=== PATIENT | male | born 1940 | race Caucasian/White ===

== ENCOUNTER 2016-12-05 12:09 | Day surgery (SDC) | payer OTHER ==
[~2016-12-05] VITALS: Ht 177.8 cm; Wt 94.5 kg
[~2016-12-05 12:09] MED LIST: FISH OIL 1,0001 EAC7 PO; LISINOPRIL2.5 MG PO; METFORMIN HCL500 MG PO; MOBIC15 MG PO; MULTIPLE VITAM1 EACH PO; ZOCOR40 MG PO
[2016-12-05 12:58] VITALS: BP 185/97
[2016-12-05 15:04] LABS: POINT-OF-CARE METER ID UU14174212
[2016-12-05] MEDS ORDERED: NORCO 5/3251 TABLET PO (19:30)
[2016-12-05 20:31] LABS: POINT-OF-CARE METER ID UU13113675
[2016-12-05 20:40] VITALS: BP 177/73
[2016-12-05 21:54] VITALS: BP 173/79
[2016-12-05 22:17] VITALS: BP 169/78
== END 2016-12-05 22:25 | disposition home or self-care (01) ==
LOC: SDC 12:09
PROVIDERS: Surgery
PROC: 0YU50JZ Supplement Right Inguinal Region with Synthetic Substitute, Open Approach (ICD-10-PCS; principal; 2016-12-05)
DX: K40.90 Unilateral inguinal hernia, without obstruction or gangrene, not specified as recurrent (principal); I10 Essential (primary) hypertension; E11.9 Type 2 diabetes mellitus without complications; E78.5 Hyperlipidemia, unspecified; Z79.84 Long term (current) use of oral hypoglycemic drugs
CPT/HCPCS: 82948; C1781; J0360; J0690; J1885; J3010; S0020